=== PATIENT | female | born 1935 | race African-American/Black ===

== ENCOUNTER 2022-12-22 18:14 | Emergency (ER) | payer MEDICARE ==
[~2022-12-22] VITALS: Ht 162.6 cm; Wt 65.9 kg
[2022-12-22] MEDS ORDERED: SODIUM CHLORIDE 0.9% 500 ML IV ONE (19:00)
[2022-12-22 19:27] LABS: BASOPHILS % (AUTO) 0.4 % (0.0-2.0); EOSINOPHILS % (AUTO) 1.4 % (1.0-6.0); HEMATOCRIT 38.7 % (36-46); HEMOGLOBIN 12.2 g/dL (12.0-16.0); LYMPHOCYTES # (AUTO) 2.6 K/uL (1.0-4.8); LYMPHOCYTES % (AUTO) 23.8 % (22.0-44.0); MEAN CORPUSCULAR HEMOGLOBIN 29.4 pg (26.0-34.0); MEAN CORPUSCULAR HGB CONC 31.7 G/dL (31.0-37.0); MEAN CORPUSCULAR VOLUME 93 fL (80-100); MONOCYTES # (AUTO) 0.5 K/uL (0.1-1.0); MONOCYTES % (AUTO) 4.5 % (2.0-9.0); NEUTROPHILS # (AUTO) 7.7 K/uL (1.8-7.7); NEUTROPHILS % (AUTO) 69.9 % (40.0-70.0); PLATELET COUNT (AUTO) 315 K/uL (150-450); RED BLOOD CELL COUNT(AUTO) 4.17 MIL/uL (4.00-5.20); RED CELL DISTRIBUTION WIDTH 15.3 % (11.5-14.5)
[2022-12-22 19:35] LABS: ANION GAP 3 mmol/L (8-16); CALCIUM, TOTAL 9.3 mg/dL (8.8-10.5); CARBON DIOXIDE 30 mmol/L (22-29); CHLORIDE 108 mmol/L (98-107); CREATININE 0.92 mg/dL (0.60-1.30); GLOMERULAR FILTR. RATE CALC > 60 mL/min (>60); GLUCOSE,RANDOM 156 mg/dL (70-110); POTASSIUM 3.6 mmol/L (3.5-5.1); SODIUM SERUM 141 mmol/L (136-145); UREA NITROGEN, BLOOD 18 mg/dL (7-18)
[2022-12-22 19:40] LABS: ALANINE AMINOTRANSFERASE 13 U/L (12-78); ALBUMIN 3.1 g/dL (3.4-5.0); ALKALINE PHOSPHATASE 88 U/L (46-116); ASPARTATE AMINOTRANSFERASE 14 U/L (15-37); BILIRUBIN,TOTAL 0.2 mg/dL (0.1-1.0); LIPASE 69 U/L (73-393); TOTAL PROTEIN, SERUM 6.6 g/dL (6.4-8.2)
[2022-12-22 19:44] LABS: B-TYPE NATRIURETIC PEPTIDE 46 pg/mL (0-100)
[2022-12-22 19:59] LABS: AMMONIA < 10 umol/L (11-32)
[2022-12-22 20:02] LABS: LACTIC ACID 2.1 mmol/L (0.4-2.0)
[2022-12-22 20:35] LABS: COVID AG,FIA SOURCE NASOPHARYNGEAL
[2022-12-22] MEDS ORDERED: [UNRECOGNIZED DRUG - OTHER] (23:12)
[2022-12-22] MEDS ORDERED: INSULIN LISPRO 100 UNITS/ML SQ PRN (23:15)
[2022-12-22] MEDS ORDERED: DEXTROSE 50%-WATER 25 GM/50 ML SYRINGE IVP PRN (23:15)
[2022-12-22] MEDS ORDERED: ONDANSETRON HCL 4 MG/2 ML VIAL IVP PRN (23:15)
[2022-12-22] MEDS ORDERED: ACETAMINOPHEN 325 MG TABLET PO PRN (23:15)
[2022-12-23] MEDS: HEPARIN SODIUM,PORCINE 5,000 UNITS/ML VIAL SQ SCH ×2 (00:32→08:19)
[2022-12-23 01:04] LABS: THYROID STIMULATING HORMONE 3.64 uIU/mL (0.36-3.74)
[2022-12-23 01:08] LABS: HEMOGLOBIN A1C 5.8 % (3.8-5.6)
[2022-12-23] MEDS ORDERED: DOCUSATE SODIUM 100 MG CAPSULE PO SCH (09:00)
[2022-12-23] MEDS ORDERED: CefTRIAXone 1 GM/DEXTROSE 50 ML IV ONE (10:30)
[2022-12-23 11:30] VITALS: BP 158/103
== END 2022-12-23 12:12 | disposition short-term general hospital (02) ==
LOC: EMS 18:14
DX: R55 Syncope and collapse (principal); R00.1 Bradycardia, unspecified; Z20.822 Contact with and (suspected) exposure to COVID-19
CPT/HCPCS: 99285; 70450; 71045; 87426; 80053; 82140; 83036; 83605; 83690; 83735; 83880; 84443; 84484; 85025; 87040; 86850; 86900; 86901; 36415; 93005; 95816; 96365; 96372; J0696; J1644

== ENCOUNTER 2024-07-20 10:34 | Emergency (ER) | payer MEDICARE ==
[~2024-07-20] VITALS: Ht 162.6 cm; Wt 70.0 kg
[~2024-07-20 10:34] MED LIST: AMLO-257 PO; DONE-51 PO
[2024-07-20 10:38] VITALS: BP 122/54; PULSE 78; RESP 18; TEMP 98.5; O2SAT 99
== END 2024-07-20 11:42 | disposition home or self-care (01) ==
LOC: EMS 10:35
DX: S01.01XD Laceration without foreign body of scalp, subsequent encounter (principal); Z48.02 Encounter for removal of sutures; R55 Syncope and collapse; Z88.0 Allergy status to penicillin; Z91.030 Bee allergy status; Z79.899 Other long term (current) drug therapy; X58.XXXD Exposure to other specified factors, subsequent encounter
CPT/HCPCS: 99281; Z7502